=== PATIENT | male | born 1930 | race Caucasian/White ===

== ENCOUNTER 2019-08-27 18:15 | Inpatient (IN) | payer MEDICARE, BC ==
[~2019-08-27] VITALS: Ht 172.7 cm; Wt 138.0 kg
--- NOTE | 2019-08-27 18:37 | NUR ---
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
[2019-08-27] MEDS ORDERED: DIPHTHERIA-TETANUS ADULT 0.5ML IM-VACC ONE (19:00)
[2019-08-27 19:19] LABS: INTERNATIONAL NORMALIZED RATIO 1.19 (0.93-1.1); PROTHROMBIN TIME 12.4 Seconds (9.6-11.5)
[2019-08-27 19:20] LABS: BASOPHILS % (AUTO) 0 % (0-1); EOSINOPHILS # (AUTO) 0.15 x10^3/uL (0-0.4); EOSINOPHILS % (AUTO) 1 % (1-7); LYMPHOCYTES # (AUTO) 0.57 x10^3/uL (1-3.4); LYMPHOCYTES % (AUTO) 5 % (22-44); MD NO; MEAN CORPUSCULAR HEMOGLOBIN 33.6 pg (27.5-34.5); MEAN CORPUSCULAR HGB CONC 32.8 g/dL (33.2-36.2); MEAN CORPUSCULAR VOLUME 102.4 fL (81-97); MEAN PLATELET VOLUME 8.6 fL (7.4-10.4); MONOCYTES # (AUTO) 1.04 x10^3/uL (0.2-0.8); MONOCYTES % (AUTO) 9 % (2-9); NEUTROPHILS # (AUTO) 9.48 x10^3/uL (1.8-6.8); NEUTROPHILS % (AUTO) 84 % (42-75); PLATELET COUNT 106 x10^3/uL (130-400); RED BLOOD COUNT 5.05 x10^6/uL (4.38-5.82); RED CELL DISTRIBUTION WIDTH 15.4 % (9.4-14.8)
[2019-08-27 19:22] LABS: ALANINE AMINOTRANSFERASE 28 U/L (12-78); ALBUMIN 3.3 g/dL (3.4-5.0); CALCIUM 8.6 mg/dL (8.5-10.1); CREATININE 1.78 mg/dL (0.7-1.3)
[2019-08-27 19:26] LABS: ALKALINE PHOSPHATASE 63 U/L (45-117); BILIRUBIN,TOTAL 0.6 mg/dL (0.2-1.0); TOTAL PROTEIN 7.2 g/dL (6.4-8.2); TROPONIN I < 0.015 ng/mL (0.000-0.045)
[2019-08-27] MEDS ORDERED: DIPH,PERTUSS(ACELL),TET VAC/PF 0.5 ML IM-VACC ONE (19:30)
--- NOTE | 2019-08-27 19:35 | NUR ---
REPORT RC'VD FROM NADIRA RAY. POC RV'WD WITH PT AND FAMILY. PT TO CT VIA [facility]ICA[facility] WARNER.
[2019-08-27 19:40] LABS: ANION GAP 5 mmol/L (5-15); CHLORIDE 104 mmol/L (98-107)
[2019-08-27] MEDS ORDERED: NEOSPORIN OINT. PKT 1 PACKET ONE (19:58)
[2019-08-27 20:16] LABS: CULTURE INDICATED? YES; MICROSCOPIC INDICATED
[2019-08-27 20:42] LABS: ANION GAP 3 mmol/L (5-15); CALCIUM 8.6 mg/dL (8.5-10.1); CHLORIDE 104 mmol/L (98-107); CREATININE 1.68 mg/dL (0.7-1.3)
--- NOTE | 2019-08-27 20:50 | NUR ---
ERP AT FOR RECHECK.
--- NOTE | 2019-08-27 21:40 | NUR ---
L ARM SKIN TEARS X3 CLEANED AND DRESSED WITH ADAPTIC, GAUZE, KERLIX WRAP. L CANTU ABRASION CLEANED AND DRESSED WITH OPTIFOAM DRESSING. FAMILY REMAINS AT BS, UNDERSTANDS PLAN FOR ADMISSION.
--- NOTE | 2019-08-27 22:01 | NUR ---
[facility] [facility] PROVIDED, BRIEF AND PAD CHANGED FOR INCONTINENCE. HOSPITALIST AT AT THIS TIME.
[2019-08-27] MEDS ORDERED: SOLI5TAB2 PO (22:11)
[2019-08-27] MEDS ORDERED: GABA300C10 PO (22:11)
[2019-08-27] MEDS ORDERED: FURO20TA3 PO (22:11)
[2019-08-27] MEDS ORDERED: WARF-36 PO (22:11)
[2019-08-27] MEDS ORDERED: SPIR25TA5 PO (22:11)
[2019-08-27] MEDS ORDERED: DOCU100C33 PO (22:11)
[2019-08-27] MEDS ORDERED: POTA99TA24 PO (22:11)
[2019-08-27] MEDS ORDERED: ASPI-515 PO (22:11)
[2019-08-27] MEDS ORDERED: HYDR-3245 PO (22:11)
[2019-08-27] MEDS ORDERED: LISI-167 PO (22:11)
[2019-08-27] MEDS ORDERED: OXYB5TAB2 PO (22:11)
[2019-08-27] MEDS ORDERED: PRAV40TA2 PO (22:11)
[2019-08-27] MEDS ORDERED: MONT10TA6 PO (22:11)
[2019-08-27] MEDS ORDERED: NITR0.4T28 SL (22:11)
[2019-08-27] MEDS ORDERED: TAMS-11 PO (22:11)
[2019-08-27] MEDS ORDERED: PROB500T22 PO (22:11)
[2019-08-27] MEDS ORDERED: CALCIUM PO (22:11)
[2019-08-27] MEDS ORDERED: CARV-39 PO (22:11)
[2019-08-27] MEDS ORDERED: LEVO50TA PO (22:11)
[2019-08-27] MEDS ORDERED: DUTA0.5C PO (22:11)
[2019-08-27] MEDS ORDERED: TESTOSTERONE INJ (22:11)
[2019-08-27] MEDS ORDERED: HYDROcodone/APAP 10/325 MG TABLET PO SCH (22:30)
[2019-08-27] MEDS ORDERED: POLYETHYLENE GLYCOL 17 GM PACKET PO PRN (22:30)
[2019-08-27] MEDS ORDERED: ACETAMINOPHEN 325 MG TABLET PO PRN (22:30)
[2019-08-27] MEDS ORDERED: BISACODYL 10 MG SUPP PR PRN (22:30)
[2019-08-27] MEDS ORDERED: NITROGLYCERIN SINGLE TAB 0.4 MG SL PRN (22:30)
[2019-08-27] MEDS ORDERED: ONDANSETRON 2MG/ML, 2ML IVPush PRN (22:30)
[2019-08-27] MEDS ORDERED: HYDROcodone/APAP 10/325 MG TABLET ONE (22:42)
[2019-08-27] MEDS: HYDROcodone/APAP 10/325 MG TABLET PO PRN (22:46)
[2019-08-27 23:30] VITALS: BP 132/85
[2019-08-27] MEDS ORDERED: [UNRECOGNIZED DRUG - OTHER] MC SCH (23:45)
[2019-08-28] MEDS: SODIUM CHLORIDE 0.9% 1,000 ML IV SCH ×3 (00:29→22:11)
[2019-08-28] MEDS: CIPROFLOXACIN/PMX 400MG/200ML 200 ML IV SCH ×2 (00:36→23:10)
[2019-08-28 02:51] LABS: MEAN CORPUSCULAR HEMOGLOBIN 33.4 pg (27.5-34.5); MEAN CORPUSCULAR HGB CONC 32.7 g/dL (33.2-36.2); MEAN CORPUSCULAR VOLUME 102.3 fL (81-97); RED BLOOD COUNT 4.95 x10^6/uL (4.38-5.82); RED CELL DISTRIBUTION WIDTH 15.3 % (9.4-14.8)
[2019-08-28 02:56] LABS: INTERNATIONAL NORMALIZED RATIO 1.23 (0.93-1.1); PROTHROMBIN TIME 12.8 Seconds (9.6-11.5)
[2019-08-28 02:59] LABS: ALANINE AMINOTRANSFERASE 20 U/L (12-78); ANION GAP 4 mmol/L (5-15); CALCIUM 8.6 mg/dL (8.5-10.1); CHLORIDE 105 mmol/L (98-107); CREATININE 1.45 mg/dL (0.7-1.3)
[2019-08-28 03:00] LABS: BASOPHILS # (AUTO) 0.01 x10^3/uL (0-0.1); BASOPHILS % (AUTO) 0 % (0-1); EOSINOPHILS # (AUTO) 0.21 x10^3/uL (0-0.4); EOSINOPHILS % (AUTO) 2 % (1-7); LYMPHOCYTES # (AUTO) 0.76 x10^3/uL (1-3.4); LYMPHOCYTES % (AUTO) 8 % (22-44); MD SCAN; MEAN PLATELET VOLUME 8.1 fL (7.4-10.4); MONOCYTES # (AUTO) 0.83 x10^3/uL (0.2-0.8); MONOCYTES % (AUTO) 9 % (2-9); NEUTROPHILS # (AUTO) 8.02 x10^3/uL (1.8-6.8); NEUTROPHILS % (AUTO) 82 % (42-75); PLATELET COUNT 94 x10^3/uL (130-400)
[2019-08-28 03:02] LABS: ALKALINE PHOSPHATASE 56 U/L (45-117); TOTAL PROTEIN 6.7 g/dL (6.4-8.2)
[2019-08-28] MEDS: LEVOTHYROXINE 50 MCG TABLET PO SCH (06:23)
[2019-08-28] MEDS: HYDROcodone/APAP 10/325 MG TABLET PO PRN ×3 (06:24→19:42)
[2019-08-28 06:28] VITALS: BP 120/82
[2019-08-28 07:06] LABS: CREATININE,URINE RANDOM 53.6 mg/dL
[2019-08-28] MEDS: SENNA/DOCUSATE TABLET PO SCH (08:49)
[2019-08-28] MEDS: CALCIUM CITRATE 950 MG TABLET PO SCH (08:50)
[2019-08-28] MEDS: CARVEDILOL 25 MG TABLET PO SCH ×2 (08:50→20:04)
[2019-08-28] MEDS: ASPIRIN 81 MG TABLET EC PO SCH (08:50)
[2019-08-28] MEDS: GABAPENTIN 300 MG CAPSULE PO SCH ×2 (08:50→20:04)
[2019-08-28] MEDS: PROBENECID 500 MG TABLET PO SCH ×2 (08:50→20:04)
[2019-08-28 09:20] VITALS: BP 127/79
[2019-08-28] MEDS ORDERED: PHARMACY MAY ADJ FOR RENAL FX MC PRN (11:30)
[2019-08-28 14:30] VITALS: BP 115/75
[2019-08-28 14:35] VITALS: BP 115/75
[2019-08-28 15:45] LABS: ANION GAP 4 mmol/L (5-15); CALCIUM 8.9 mg/dL (8.5-10.1); CHLORIDE 105 mmol/L (98-107)
[2019-08-28 15:46] LABS: CREATININE 1.37 mg/dL (0.7-1.3)
[2019-08-28] MEDS ORDERED: WARFARIN 5 MG TABLET PO-COUM SCH (18:00)
[2019-08-28 18:40] VITALS: BP 119/73
[2019-08-28] MEDS: TAMSULOSIN 0.4 MG CAP.ER.24H PO SCH (20:04)
[2019-08-28] MEDS: TEMPLATE NON-FORMULARY MED. (Solifenacin Succinate** (Vesicare**) 5 MG) HOMEMEDPO SCH (20:04)
[2019-08-28] MEDS: DUTASTERIDE 0.5 MG CAPSULE PO SCH (20:04)
[2019-08-28] MEDS: MONTELUKAST 10 MG TABLET PO SCH (20:04)
[2019-08-28] MEDS: PRAVASTATIN 40 MG TABLET PO SCH (20:04)
[2019-08-28] MEDS: OXYBUTYNIN CHLORIDE 5 MG TABLET PO SCH (20:04)
[2019-08-29 00:22] VITALS: BP 130/76
[2019-08-29] MEDS: HYDROcodone/APAP 10/325 MG TABLET PO PRN ×3 (04:57→17:59)
[2019-08-29] MEDS: LEVOTHYROXINE 50 MCG TABLET PO SCH (05:29)
[2019-08-29 05:37] LABS: INTERNATIONAL NORMALIZED RATIO 1.15 (0.93-1.1)
[2019-08-29 05:41] LABS: ALBUMIN 2.9 g/dL (3.4-5.0); ANION GAP 3 mmol/L (5-15); CALCIUM 8.8 mg/dL (8.5-10.1); CHLORIDE 105 mmol/L (98-107)
[2019-08-29 05:43] LABS: MEAN CORPUSCULAR HEMOGLOBIN 33.6 pg (27.5-34.5); MEAN CORPUSCULAR HGB CONC 32.5 g/dL (33.2-36.2); MEAN CORPUSCULAR VOLUME 103.5 fL (81-97); RED BLOOD COUNT 4.89 x10^6/uL (4.38-5.82)
[2019-08-29 05:45] LABS: ALANINE AMINOTRANSFERASE 19 U/L (12-78); ALKALINE PHOSPHATASE 60 U/L (45-117); BILIRUBIN,TOTAL 0.6 mg/dL (0.2-1.0); CREATININE 1.11 mg/dL (0.7-1.3); TOTAL PROTEIN 6.7 g/dL (6.4-8.2)
[2019-08-29 05:58] LABS: BASOPHILS # (AUTO) 0.02 x10^3/uL (0-0.1); BASOPHILS % (AUTO) 0 % (0-1); EOSINOPHILS # (AUTO) 0.26 x10^3/uL (0-0.4); EOSINOPHILS % (AUTO) 3 % (1-7); LYMPHOCYTES # (AUTO) 0.61 x10^3/uL (1-3.4); LYMPHOCYTES % (AUTO) 7 % (22-44); MD SCAN; MEAN PLATELET VOLUME 8.4 fL (7.4-10.4); MONOCYTES # (AUTO) 0.84 x10^3/uL (0.2-0.8); MONOCYTES % (AUTO) 10 % (2-9); NEUTROPHILS % (AUTO) 79 % (42-75); PLATELET COUNT 89 x10^3/uL (130-400)
[2019-08-29 07:25] VITALS: BP 120/81
[2019-08-29] MEDS: ASPIRIN 81 MG TABLET EC PO SCH (08:42)
[2019-08-29] MEDS: SODIUM CHLORIDE 0.9% 1,000 ML IV SCH (08:42)
[2019-08-29] MEDS: CALCIUM CITRATE 950 MG TABLET PO SCH (08:42)
[2019-08-29] MEDS: CARVEDILOL 25 MG TABLET PO SCH ×2 (08:42→20:47)
[2019-08-29] MEDS: GABAPENTIN 300 MG CAPSULE PO SCH ×2 (08:42→20:47)
[2019-08-29] MEDS: PROBENECID 500 MG TABLET PO SCH ×2 (08:43→20:47)
[2019-08-29] MEDS: SENNA/DOCUSATE TABLET PO SCH (08:43)
[2019-08-29 14:15] VITALS: BP 121/74
[2019-08-29] MEDS ORDERED: WARFARIN 7.5 MG TABLET PO-COUM SCH (18:00)
[2019-08-29 19:22] VITALS: BP 147/89
[2019-08-29] MEDS: DUTASTERIDE 0.5 MG CAPSULE PO SCH (20:46)
[2019-08-29] MEDS: TAMSULOSIN 0.4 MG CAP.ER.24H PO SCH (20:47)
[2019-08-29] MEDS: OXYBUTYNIN CHLORIDE 5 MG TABLET PO SCH (20:47)
[2019-08-29] MEDS: TEMPLATE NON-FORMULARY MED. (Solifenacin Succinate** (Vesicare**) 5 MG) HOMEMEDPO SCH (20:47)
[2019-08-29] MEDS: PRAVASTATIN 40 MG TABLET PO SCH (20:47)
[2019-08-29] MEDS: MONTELUKAST 10 MG TABLET PO SCH (20:47)
[2019-08-30] MEDS: HYDROcodone/APAP 10/325 MG TABLET PO PRN ×5 (00:04→23:05)
[2019-08-30 00:33] VITALS: BP 114/76
[2019-08-30] MEDS: LEVOTHYROXINE 50 MCG TABLET PO SCH (05:33)
[2019-08-30 06:14] LABS: INTERNATIONAL NORMALIZED RATIO 1.34 (0.93-1.1); PROTHROMBIN TIME 13.9 Seconds (9.6-11.5)
[2019-08-30 06:24] LABS: ANION GAP 5 mmol/L (5-15); CALCIUM 9.5 mg/dL (8.5-10.1); CHLORIDE 105 mmol/L (98-107)
[2019-08-30 06:29] LABS: CREATININE 1.11 mg/dL (0.7-1.3)
[2019-08-30 07:45] VITALS: BP 107/73
[2019-08-30] MEDS: CALCIUM CITRATE 950 MG TABLET PO SCH (08:36)
[2019-08-30] MEDS: CARVEDILOL 25 MG TABLET PO SCH ×2 (08:37→21:40)
[2019-08-30] MEDS: GABAPENTIN 300 MG CAPSULE PO SCH ×2 (08:37→21:40)
[2019-08-30] MEDS: PROBENECID 500 MG TABLET PO SCH ×2 (08:37→21:40)
[2019-08-30] MEDS: LISINOPRIL 5 MG TABLET PO SCH (08:37)
[2019-08-30] MEDS: SENNA/DOCUSATE TABLET PO SCH (08:37)
[2019-08-30 12:53] VITALS: BP 126/74
[2019-08-30] MEDS ORDERED: SODIUM POLYSTYRENE SULFONATE ORAL SUSP PO ONE (15:30)
[2019-08-30] MEDS ORDERED: WARFARIN 7.5 MG TABLET PO-COUM SCH (18:00)
[2019-08-30 19:22] VITALS: BP 108/69
[2019-08-30] MEDS: MONTELUKAST 10 MG TABLET PO SCH (21:40)
[2019-08-30] MEDS: TAMSULOSIN 0.4 MG CAP.ER.24H PO SCH (21:40)
[2019-08-30] MEDS: OXYBUTYNIN CHLORIDE 5 MG TABLET PO SCH (21:40)
[2019-08-30] MEDS: PRAVASTATIN 40 MG TABLET PO SCH (21:40)
[2019-08-30] MEDS: DUTASTERIDE 0.5 MG CAPSULE PO SCH (21:40)
[2019-08-30] MEDS: TEMPLATE NON-FORMULARY MED. (Solifenacin Succinate** (Vesicare**) 5 MG) HOMEMEDPO SCH (21:42)
[2019-08-31 00:35] VITALS: BP 90/63
[2019-08-31] MEDS: LEVOTHYROXINE 50 MCG TABLET PO SCH (05:52)
[2019-08-31] MEDS: HYDROcodone/APAP 10/325 MG TABLET PO PRN ×3 (05:53→21:27)
[2019-08-31 06:22] LABS: BASOPHILS # (AUTO) 0.04 x10^3/uL (0-0.1); BASOPHILS % (AUTO) 0 % (0-1); EOSINOPHILS # (AUTO) 0.21 x10^3/uL (0-0.4); EOSINOPHILS % (AUTO) 3 % (1-7); LYMPHOCYTES # (AUTO) 0.56 x10^3/uL (1-3.4); LYMPHOCYTES % (AUTO) 7 % (22-44); MD NO; MEAN CORPUSCULAR HEMOGLOBIN 33.6 pg (27.5-34.5); MEAN CORPUSCULAR HGB CONC 32.6 g/dL (33.2-36.2); MEAN CORPUSCULAR VOLUME 103.2 fL (81-97); MEAN PLATELET VOLUME 8.9 fL (7.4-10.4); MONOCYTES # (AUTO) 0.74 x10^3/uL (0.2-0.8); MONOCYTES % (AUTO) 9 % (2-9); NEUTROPHILS # (AUTO) 7.12 x10^3/uL (1.8-6.8); NEUTROPHILS % (AUTO) 82 % (42-75); PLATELET COUNT 101 x10^3/uL (130-400); RED BLOOD COUNT 4.72 x10^6/uL (4.38-5.82); RED CELL DISTRIBUTION WIDTH 15.9 % (9.4-14.8)
[2019-08-31 06:30] LABS: INTERNATIONAL NORMALIZED RATIO 1.73 (0.93-1.1); PROTHROMBIN TIME 17.8 Seconds (9.6-11.5)
[2019-08-31 06:35] LABS: ANION GAP 7 mmol/L (5-15); CALCIUM 9.3 mg/dL (8.5-10.1); CHLORIDE 103 mmol/L (98-107)
[2019-08-31 06:38] LABS: CREATININE 1.26 mg/dL (0.7-1.3)
[2019-08-31 07:58] VITALS: BP 111/76
[2019-08-31] MEDS: SENNA/DOCUSATE TABLET PO SCH (08:23)
[2019-08-31] MEDS: PROBENECID 500 MG TABLET PO SCH ×2 (09:00→21:24)
[2019-08-31] MEDS: GABAPENTIN 300 MG CAPSULE PO SCH ×2 (09:00→21:24)
[2019-08-31] MEDS: CALCIUM CITRATE 950 MG TABLET PO SCH (09:00)
[2019-08-31] MEDS: CARVEDILOL 25 MG TABLET PO SCH ×2 (09:00→21:24)
[2019-08-31] MEDS: LISINOPRIL 5 MG TABLET PO SCH (09:00)
[2019-08-31] MEDS ORDERED: SODIUM POLYSTYRENE SULFONATE ORAL SUSP PO ONE (10:00)
[2019-08-31 12:58] VITALS: BP 105/62
[2019-08-31] MEDS ORDERED: WARFARIN 5 MG TABLET PO-COUM ONE (18:00)
[2019-08-31 18:10] LABS: ANION GAP 5 mmol/L (5-15); CALCIUM 9.3 mg/dL (8.5-10.1); CHLORIDE 103 mmol/L (98-107); CREATININE 1.43 mg/dL (0.7-1.3)
[2019-08-31 19:06] VITALS: BP 124/72
[2019-08-31] MEDS ORDERED: LACTATED RINGERS 1,000 ML IV SCH (20:00)
[2019-08-31] MEDS: TEMPLATE NON-FORMULARY MED. (Solifenacin Succinate** (Vesicare**) 5 MG) HOMEMEDPO SCH (21:00)
[2019-08-31] MEDS: DUTASTERIDE 0.5 MG CAPSULE PO SCH (21:22)
[2019-08-31] MEDS: TAMSULOSIN 0.4 MG CAP.ER.24H PO SCH (21:24)
[2019-08-31] MEDS: OXYBUTYNIN CHLORIDE 5 MG TABLET PO SCH (21:24)
[2019-08-31] MEDS: MONTELUKAST 10 MG TABLET PO SCH (21:24)
[2019-08-31] MEDS: PRAVASTATIN 40 MG TABLET PO SCH (21:25)
[2019-09-01 01:06] VITALS: BP 102/68
[2019-09-01 05:52] LABS: ANION GAP 6 mmol/L (5-15); CHLORIDE 105 mmol/L (98-107)
[2019-09-01 05:55] LABS: CREATININE 1.23 mg/dL (0.7-1.3)
[2019-09-01 05:57] LABS: INTERNATIONAL NORMALIZED RATIO 2.49 (0.93-1.1); PROTHROMBIN TIME 25.2 Seconds (9.6-11.5)
[2019-09-01] MEDS: LEVOTHYROXINE 50 MCG TABLET PO SCH (06:07)
[2019-09-01 07:35] VITALS: BP 122/82
[2019-09-01] MEDS: CARVEDILOL 25 MG TABLET PO SCH ×2 (08:29→20:11)
[2019-09-01] MEDS: SENNA/DOCUSATE TABLET PO SCH (08:30)
[2019-09-01] MEDS: HYDROcodone/APAP 10/325 MG TABLET PO PRN ×2 (08:31→19:56)
[2019-09-01] MEDS: CALCIUM CITRATE 950 MG TABLET PO SCH (08:31)
[2019-09-01] MEDS: PROBENECID 500 MG TABLET PO SCH ×2 (08:31→20:11)
[2019-09-01] MEDS: GABAPENTIN 300 MG CAPSULE PO SCH ×2 (08:36→20:11)
[2019-09-01 13:10] VITALS: BP 117/73
[2019-09-01] MEDS ORDERED: WARFARIN 5 MG TABLET PO-COUM ONE (17:26)
[2019-09-01] MEDS ORDERED: WARFARIN 2.5 MG TABLET PO-COUM ONE (18:00)
[2019-09-01 19:32] VITALS: BP 144/82
[2019-09-01] MEDS: PRAVASTATIN 40 MG TABLET PO SCH (20:10)
[2019-09-01] MEDS: TAMSULOSIN 0.4 MG CAP.ER.24H PO SCH (20:11)
[2019-09-01] MEDS: OXYBUTYNIN CHLORIDE 5 MG TABLET PO SCH (20:11)
[2019-09-01] MEDS: MONTELUKAST 10 MG TABLET PO SCH (20:11)
[2019-09-01] MEDS: DUTASTERIDE 0.5 MG CAPSULE PO SCH (20:12)
[2019-09-01] MEDS: TEMPLATE NON-FORMULARY MED. (Solifenacin Succinate** (Vesicare**) 5 MG) HOMEMEDPO SCH (20:12)
[2019-09-02 01:01] VITALS: BP 117/82
[2019-09-02] MEDS: HYDROcodone/APAP 10/325 MG TABLET PO PRN ×2 (05:42→12:28)
[2019-09-02] MEDS: LEVOTHYROXINE 50 MCG TABLET PO SCH (05:42)
[2019-09-02 06:03] LABS: ANION GAP 3 mmol/L (5-15); CALCIUM 9.5 mg/dL (8.5-10.1); CHLORIDE 103 mmol/L (98-107); CREATININE 1.22 mg/dL (0.7-1.3)
[2019-09-02 06:32] LABS: INTERNATIONAL NORMALIZED RATIO 2.62 (0.93-1.1); PROTHROMBIN TIME 26.5 Seconds (9.6-11.5)
[2019-09-02] MEDS: SENNA/DOCUSATE TABLET PO SCH (09:00)
[2019-09-02] MEDS: PROBENECID 500 MG TABLET PO SCH (09:09)
[2019-09-02 09:10] VITALS: BP 123/85
[2019-09-02] MEDS: GABAPENTIN 300 MG CAPSULE PO SCH (09:10)
[2019-09-02] MEDS: CALCIUM CITRATE 950 MG TABLET PO SCH (09:10)
[2019-09-02] MEDS: CARVEDILOL 25 MG TABLET PO SCH (09:11)
[2019-09-02] MEDS ORDERED: SENN-193 PO (10:42)
[2019-09-02] MEDS ORDERED: CARV25TA12 PO (10:42)
[2019-09-02] MEDS ORDERED: POLY17PO5 PO (10:42)
[2019-09-02] MEDS ORDERED: PROB500T22 PO (10:42)
[2019-09-02] MEDS ORDERED: WARF2.5T32 PO-COUM (10:42)
[2019-09-02] MEDS ORDERED: HYDR-3240 PO (10:43)
[2019-09-02 13:54] VITALS: BP 108/74
[2019-09-02] MEDS ORDERED: WARFARIN 2.5 MG TABLET PO-COUM ONE (18:00)
== END 2019-09-02 14:30 | DRG 682 ==
LOC: ED 20:46 → EDIP 22:32 → 4EST 23:11
PROVIDERS: ADMIT Internal Medicine; ATTEND Internal Medicine
DX: N17.0 Acute kidney failure with tubular necrosis (principal); J96.20 Acute and chronic respiratory failure, unspecified whether with hypoxia or hypercapnia; I48.20 Chronic atrial fibrillation, unspecified; E87.1 Hypo-osmolality and hyponatremia; D68.69 Other thrombophilia; Z68.41 Body mass index [BMI] 40.0-44.9, adult; D69.6 Thrombocytopenia, unspecified; D75.89 Other specified diseases of blood and blood-forming organs; E03.9 Hypothyroidism, unspecified; E86.9 Volume depletion, unspecified; E87.5 Hyperkalemia; Z88.5 Allergy status to narcotic agent; Z88.0 Allergy status to penicillin; Z88.2 Allergy status to sulfonamides; Z88.8 Allergy status to other drugs, medicaments and biological substances; I11.0 Hypertensive heart disease with heart failure; I25.10 Atherosclerotic heart disease of native coronary artery without angina pectoris; I25.2 Old myocardial infarction; I35.1 Nonrheumatic aortic (valve) insufficiency; I50.9 Heart failure, unspecified; M50.30 Other cervical disc degeneration, unspecified cervical region; R29.6 Repeated falls; T36.0X5A Adverse effect of penicillins, initial encounter; Y92.89 Other specified places as the place of occurrence of the external cause; W18.39XA Other fall on same level, initial encounter; Y93.01 Activity, walking, marching and hiking; Y99.8 Other external cause status; Z79.01 Long term (current) use of anticoagulants; Z79.899 Other long term (current) drug therapy; Z85.51 Personal history of malignant neoplasm of bladder; Z95.0 Presence of cardiac pacemaker; Z95.1 Presence of aortocoronary bypass graft; Z95.2 Presence of prosthetic heart valve
CPT/HCPCS: 36415; 70450; 72125; 72128; 72131; 74018; 80048; 80053; 81001; 82436; 82570; 82607; 83735; 84100; 84133; 84300; 84443; 84484; 85025; 85610; 87040; 87086; 90715; 93005; 99285; G0378; J0744; J7030; J7120

== ENCOUNTER → 2020-05-12 | Outpatient (CLI) | payer MEDICARE, BC ==
[~2020-05-12] MED LIST: ASPI-515 PO; CALC1CAP8 PO; CALCIUM PO; CARV-39 PO; CARV25TA12 PO; DOCU100C33 PO; DUTA0.5C PO; FAMO-79 PO; FLUO20TA25 PO; FURO20TA3 PO; GABA300C10 PO; HYDR-3240 PO; HYDR-3245 PO; HYDROMORPHONE PUMP; LEVO50TA PO; LISI-167 PO; LORA-247 PO; MONT10TA6 PO; NITR0.4T28 SL; OXYB-39 PO; POLY17PO5 PO; POTA99TA24 PO; PRAV40TA2 PO; PROB500T22 PO; SENN-193 PO; SOLI5TAB2 PO; SPIR25TA5 PO; TAMS-11 PO; TESTOSTERONE INJ; VIT1CAPS42 PO; WARF-36 PO; WARF2.5T32 PO-COUM
== END | disposition home or self-care (01) ==
LOC: STAR 09:20
PROVIDERS: ATTEND Urology
DX: Z01.818 Encounter for other preprocedural examination (principal); N31.9 Neuromuscular dysfunction of bladder, unspecified
CPT/HCPCS: 93005